=== PATIENT | male | born 1990 | race Caucasian/White ===

== ENCOUNTER 2017-04-12 01:08 | Emergency (ER) | payer MEDICAID ==
[2017-04-12] MEDS ORDERED: IBUPROFEN 800 MG TABLET PO ONE (02:24)
[2017-04-12] MEDS ORDERED: CLINDAMYCIN HCL 150 MG CAPSULE PO ONE (02:24)
--- NOTE | 2017-04-12 02:29 | ER Document Report ---
ED Oral Problem - General Chief Complaint: Toothache Stated Complaint: TOOTH PAIN Time Seen by Provider: 04/12/17 01:58 Mode of Arrival: Ambulatory Information source: Patient Notes: 26-year-old male presents to ED for dental pain times a week. He states there was some swelling to his gums below the right lower molars and he felt a pop tonight then tasted a horrible taste in his mouth which caused him to vomit 2. States he took some ibuprofen about 2300 but he threw that up. TRAVEL OUTSIDE OF THE [place] IN LAST 30 DAYS: No - HPI Patient complains to provider of: Toothache Onset: Last week Onset: Gradual Quality of pain: Sharp, Throbbing Severity: Moderate Pain Level: 4 Associated symptoms: Jaw pain, Toothache Worsened by: Cold Relieved by: Nothing Similar symptoms previously: Yes Recently seen / treated by doctor/dentist: No Past Medical History - General Information source: Patient - Social History Smoking Status: Former Smoker Cigarette use (# per day): No Chew tobacco use (# tins/day): No Smoking Education Provided: No Frequency of alcohol use: Occasional Drug Abuse: None Occupation: [employer] Lives with: Family Family History: Arthritis, CAD, COPD, CVA, DM, Hyperlipidemia, Hypertension, Thyroid Disfunction. denies: Malignancy Patient has suicidal ideation: No Patient has homicidal ideation: No - Past Medical History Cardiac Medical History: Reports: None Pulmonary Medical History: Reports: Hx Asthma, Hx Pneumonia EENT Medical History: Reports: None Neurological Medical History: Reports: Hx Migraine Endocrine Medical History: Reports: None Renal/ Medical History: Reports: None Malignancy Medical History: Reports None GI Medical History: Reports: None Musculoskeltal Medical History: Reports Hx Arthritis, Reports Hx Musculoskeletal Deformity, Reports Hx Musculoskeletal Trauma Skin Medical History: Reports None Psychiatric Medical History: Reports: None Traumatic Medical History: Reports: Hx Fractures Infectious Medical History: Reports: None Past Surgical History: Reports: Hx Myringotomy, Hx Orthopedic Surgery - bialteral hand surgery bone graft taken from hip Review of Systems - Review of Systems Constitutional: No symptoms reported EENT: Mouth pain, Dental problem Cardiovascular: No symptoms reported Respiratory: No symptoms reported Gastrointestinal: No symptoms reported Genitourinary: No symptoms reported Male Genitourinary: No symptoms reported Musculoskeletal: No symptoms reported Skin: No symptoms reported Hematologic/Lymphatic: No symptoms reported Neurological/Psychological: No symptoms reported Physical Exam - Vital signs Vitals: Temp Pulse Resp BP Pulse Ox 97.6 F 77 18 136/84 H 100 04/12/17 01:04/12/17 01:04/12/17 01:04/12/17 01:04/12/17 01:14 Interpretation: Normal - General General appearance: Appears well, Alert - HEENT Head: Normocephalic, Atraumatic Eyes: Normal Pupils: PERRL Ears: Normal External canal: Normal Tympanic membrane: Normal Sinus: Normal Nasal: Normal Mouth/Lips: Caries Mucous membranes: Other - gums to left lower jaw red and inflamed with area that is mildly draining Pharynx: Normal Neck: Normal - Respiratory Respiratory status: No respiratory distress Chest status: Nontender Breath sounds: Normal Chest palpation: Normal - Cardiovascular Rhythm: Regular Heart sounds: Normal auscultation Murmur: No - Abdominal Inspection: Normal Distension: No distension Bowel sounds: Normal Tenderness: Nontender Organomegaly: No organomegaly - Back Back: Normal, Nontender - Extremities General upper extremity: Normal inspection, Nontender, Normal color, Normal ROM , Normal temperature General lower extremity: Normal inspection, Nontender, Normal color, Normal ROM , Normal temperature, Normal weight bearing. No: Mary's sign - Neurological Neuro grossly intact: Yes Cognition: Normal Orientation: AAOx4 Adrian Coma Scale Eye Opening: Spontaneous [place] Coma Scale Verbal: Oriented [place] Coma Scale Motor: Obeys Commands Adrian Coma Scale Total: 15 Speech: Normal Motor strength normal: LUE, RUE, LLE, RLE Sensory: Normal - Psychological Associated symptoms: Normal affect, Normal mood - Skin Skin Temperature: Warm Skin Moisture: Dry Skin Color: Normal Course - Vital Signs Vital signs: Temp Pulse Resp BP Pulse Ox 97.6 F 77 18 136/84 H 100 04/12/17 01:04/12/17 01:04/12/17 01:04/12/17 01:04/12/17 01:14 Discharge - Discharge Clinical Impression: Pain due to dental caries, Gingivitis Condition: Stable Disposition: HOME, SELF-CARE Additional Instructions: TOOTHACHE: Your pain is due to dental decay. The tooth must be repaired in order for you to feel better. You will, therefore, be referred to a dentist. We do not have dentists on the staff at [facility]. Severe swelling or drainage around a tooth usually means a dental abscess. This also requires evaluation and treatment by the dentist, but antibiotics may be prescribed while awaiting dental treatment. You should be rechecked immediately if you develop major swelling of the face, increasing pain, a lump in the jaw or gums, headache, difficulty swallowing, or fever. CLINDAMYCIN: You have been given a prescription for the antibiotic clindamycin. It is often prescribed for infections in the mouth, such as dental infections or abscesses, and for skin infections due to MRSA. It's important that you take all the medication, unless instructed otherwise by your physician. Failure to complete the entire course can result in relapse of your condition. Common side effects of antibiotics include nausea, intestinal cramping, or diarrhea. Women may develop vaginal yeast infections, and babies can get yeast (thrush) in the mouth following the use of antibiotics. Contact your physician if you develop significant side effects from this medication. Allergy to this antibiotic can result in hives, wheezing, faintness, or itching. If symptoms of allergy occur, stop the medication and call the doctor. Anti-Inflammatory Medication You have received a prescription for an antiinflammatory agent. This is an excellent, safe drug for pain control. In addition, it has potent antiinflammatory effects which are beneficial, especially in the treatment of injuries, arthritis, or tendonitis. It's best to take this medicine with food. Persons with ulcer disease or allergy to aspirin should notify their physician of this before taking this drug. Take the medication exactly as prescribed. Don't take additional doses unless instructed to do so by your doctor. If you develop wheezing, shortness of breath, hives, faintness, stomach pain, vomiting, or dark black stools, return for re-evaluation at once. FOLLOW-UP CARE: You have been referred for follow-up care to the dentists listed below. Call the dentists office for an appointment as you were instructed or within the next two days. If you experience worsening or a significant change in your symptoms, notify the physician immediately or return to the Emergency Department at any time for re-evaluation. [facility] [address] [place] [address] [facility] [place] [facility] [address] [facility] [place] [email or web address] [address] [place] [address] Saturday- 8:00am to 5:00 pm Will see patients from other [facility]. Charges based on income and family size and accepts Medicare, Medicaid, and Insurances Will pull molars [facility] [place] [address] Hours of Operation 8:00 am - 4:30 pm weekdays The following dental offices accept Medicaid: [facility] Dr. Sethi Dr. Cowart Dr. Brennan Dr. Aiken Mukesh Padilla L[place], and [facility] Dr. Tucker ([place]) Dr. Nation ([place]) [facility] Drs. Win and Abdulaziz ([place]) Dr. Blake ([place]) [facility] Dr. Whitney ([place]) Drs. Murillo and ([place]) Medicaid Care Line Prescriptions: Ibuprofen 800 mg PO Q8HP PRN #20 tablet PRN Reason: Clindamycin HCl 300 mg PO Q6 10 Days Forms: Elevated Blood Pressure, Return to Work Referrals: [facility] [Provider Group] - Follow up as needed
[2017-04-12 02:42] VITALS: BP 127/77
== END 2017-04-12 02:42 | disposition home or self-care (01) ==
LOC: ER 01:08
DX: K02.9 Dental caries, unspecified (principal); K05.10 Chronic gingivitis, plaque induced; R68.84 Jaw pain; Z87.891 Personal history of nicotine dependence
CPT/HCPCS: 99282; J3490 ×2

== ENCOUNTER 2017-07-17 20:41 | Emergency (ER) | payer MEDICAID ==
[2017-07-17] MEDS ORDERED: ACETAMINOPHEN 325 MG TABLET PO ONE (23:03)
[2017-07-17] MEDS ORDERED: NORMAL SALINE 1000 ML 1,000 ML IV ONE (23:03)
--- NOTE | 2017-07-18 00:03 | RADIOLOGY REPORT (SQ) ---
EXAM DESCRIPTION: CHEST PA/LAT COMPLETED DATE/TIME: 07/17/2017 11:20 pm REASON FOR STUDY: fever/ flu sx COMPARISON: None. EXAM PARAMETERS: NUMBER OF VIEWS: two views TECHNIQUE: Digital Frontal and Lateral radiographic views of the chest acquired. RADIATION DOSE: NA LIMITATIONS: none FINDINGS: LUNGS AND PLEURA: No opacities, masses or pneumothorax. No pleural effusion. Moderate antoinette g volume. MEDIASTINUM AND HILAR STRUCTURES: No masses or contour abnormalities. HEART AND VASCULAR STRUCTURES: Heart normal size. No evidence for failure. BONES: No acute findings. HARDWARE: None in the chest. OTHER: No other significant finding. IMPRESSION: NO SIGNIFICANT RADIOGRAPHIC FINDING IN THE CHEST. TECHNICAL DOCUMENTATION: JOB ID: [id number] [employer]- All Rights Reserved
[2017-07-18 00:47] LABS: ABSOLUTE MONOCYTES (AUTO) 1.3 10^3/uL (0.1-1.4); ABSOLUTE NEUT (AUTO) 10.6 10^3/uL (1.7-8.2); BASOPHILS % (AUTO) 0.1 % (0-2); HEMATOCRIT 42.9 % (37.9-51.0); HEMOGLOBIN 15.3 g/dL (13.5-17.0); LYMPHOCYTES % (AUTO) 7.7 % (13-45); MEAN CORPUSCULAR HGB CONC 35.6 g/dL (32.0-36.0); MEAN CORPUSCULAR VOLUME 87 fl (80-97); RED BLOOD COUNT 4.91 10^6/uL (4.35-5.55); RED CELL DISTRIBUTION WIDTH 12.8 % (11.5-14.0); SEGMENTED NEUTROPHILS % (AUTO) 82.2 % (42-78); WHITE BLOOD COUNT 12.9 10^3/uL (4.0-10.5)
[2017-07-18 00:59] LABS: ALANINE AMINOTRANSFERASE 44 U/L (21-72); ALKALINE PHOSPHATASE 82 U/L (38-126); ASPARTATE AMINO TRANSFERASE 25 U/L (17-59); BILIRUBIN,DIRECT 0.7 mg/dL (0.0-0.4); BILIRUBIN,TOTAL 2.4 mg/dL (0.2-1.3); BLOOD UREA NITROGEN 12 mg/dL (7-20); CALCIUM 9.7 mg/dL (8.4-10.2); GLUCOSE 113 mg/dL (75-110); TOTAL PROTEIN 8.3 g/dL (6.3-8.2)
[2017-07-18 00:59] LABS: APPEARANCE,URINE SLIGHTLY-CLOUDY; BILIRUBIN,URINE SMALL (NEGATIVE); GLUCOSE, URINE NEGATIVE (NEGATIVE); KETONES,URINE 80 mg/dL (NEGATIVE); LEUKOCYTE ESTERASE,URINE NEGATIVE (NEGATIVE); NITRITE,URINE NEGATIVE (NEGATIVE); PROTEIN,URINE 100 mg/dL (NEGATIVE); URINE SPECIFIC GRAVITY 1.038
[2017-07-18 01:04] LABS: PROTHROMBIN TIME 13.7 SEC (11.4-15.4)
[2017-07-18 01:07] LABS: CARBON DIOXIDE 22 mmol/L (22-30); CHLORIDE 101 mmol/L (98-107); POTASSIUM 4.4 mmol/L (3.6-5.0); SODIUM 142.5 mmol/L (137-145)
[2017-07-18 01:08] LABS: ANION GAP 20 (5-19)
[2017-07-18] MEDS ORDERED: ONDANSETRON HCL INJ/PF 4 MG/2 ML SDV ONE (01:22)
[2017-07-18] MEDS ORDERED: ONDANSETRON HCL INJ/PF 4 MG/2 ML SDV IV ONE (01:23)
--- NOTE | 2017-07-18 02:56 | ER Document Report ---
ED General - General Chief Complaint: Flu Symptoms Stated Complaint: FEVER/VOMITING Time Seen by Provider: 07/18/17 01:21 Mode of Arrival: Ambulatory Information source: Patient Notes: 27-year-old male presents with 2 day duration of productive cough fevers body aches. Patient admits to coughing so hard that he vomits. Patient denies any abdominal pain Patient has a history of asthma denies any smoking history denies any DVT or PE risk factors TRAVEL OUTSIDE OF THE [place] IN LAST 30 DAYS: No - HPI Onset: Other - 2 day duration Onset/Duration: Persistent Quality of pain: Achy Severity: Mild Pain Level: 1 Associated symptoms: Fever Exacerbated by: Coughing Relieved by: Denies Similar symptoms previously: No Recently seen / treated by doctor: No Past Medical History - Social History Smoking Status: Never Smoker Cigarette use (# per day): No Chew tobacco use (# tins/day): No Smoking Education Provided: No Drug Abuse: None Family History: Arthritis, CAD, COPD, CVA, DM, Hyperlipidemia, Hypertension, Thyroid Disfunction. denies: Malignancy Patient has suicidal ideation: No Patient has homicidal ideation: No Pulmonary Medical History: Reports: Hx Asthma, Hx Pneumonia Neurological Medical History: Reports: Hx Migraine Renal/ Medical History: Denies: Hx Peritoneal Dialysis Musculoskeltal Medical History: Reports Hx Arthritis, Reports Hx Musculoskeletal Deformity, Reports Hx Musculoskeletal Trauma Traumatic Medical History: Reports: Hx Fractures Past Surgical History: Reports: Hx Myringotomy, Hx Orthopedic Surgery - bialteral hand surgery bone graft taken from hip Review of Systems - Review of Systems Notes: REVIEW OF SYSTEMS: CONSTITUTIONAL : Denies fever, chills, or sweats. Denies recent illness. EENT: Denies eye, ear, throat, or mouth pain or symptoms. Denies nasal or sinus congestion or discharge. Denies throat, tongue, or mouth swelling or difficulty swallowing. CARDIOVASCULAR: Denies chest pain. Denies palpitations or racing or irregular heart beat. Denies ankle edema. RESPIRATORY: Admits to fever cough shortness of breath posttussive emesis GASTROINTESTINAL: Denies abdominal pain or distention. Denies blood in vomitus, stools, or per rectum. Denies black, tarry stools. Denies constipation. GENITOURINARY: Denies difficulty urinating, painful urination, burning, frequency, blood in urine, or discharge. MUSCULOSKELETAL: Denies back or neck pain or stiffness. Denies joint pain or swelling. SKIN: Denies rash, lesions or sores. HEMATOLOGIC : Denies easy bruising or bleeding. LYMPHATIC: Denies swollen, enlarged glands. NEUROLOGICAL: Denies confusion or altered mental status. Denies passing out or loss of consciousness. Denies dizziness or lightheadedness. Denies headache. Denies weakness or paralysis or loss of use of either side. Denies problems with gait or speech. Denies sensory loss, numbness, or tingling. Denies seizures. PSYCHIATRIC: Denies anxiety or stress. Denies depression, suicidal ideation, or homicidal ideation. ALL OTHER SYSTEMS REVIEWED AND NEGATIVE. Dictation was performed using [employer] voice recognition software PHYSICAL EXAMINATION: GENERAL: Well-appearing, well-nourished and in no acute distress. Febrile HEAD: Atraumatic, normocephalic. EYES: Pupils equal round and reactive to light, extraocular movements intact, sclera anicteric, conjunctiva are normal. ENT: Nares patent, oropharynx clear without exudates. Moist mucous membranes. NECK: Normal range of motion, supple without lymphadenopathy LUNGS: Breath sounds clear to auscultation bilaterally and equal. No wheezes rales or rhonchi. HEART: Tachycardic ABDOMEN: Soft, nontender, nondistended abdomen. No guarding, no rebound. No masses appreciated. Musculoskeletal: Normal range of motion, no pitting or edema. No cyanosis. NEUROLOGICAL: Cranial nerves grossly intact. Normal speech, normal gait. Normal sensory, motor exams PSYCH: Normal mood, normal affect. SKIN: Warm, Dry, normal turgor, no rashes or lesions noted. Physical Exam - Vital signs Vitals: Temp Pulse Resp BP Pulse Ox 102.1 F H 120 H 20 113/84 98 07/17/17 22:55 07/17/17 22:55 07/17/17 22:55 07/17/17 22:55 07/17/17 22:55 Course - Re-evaluation Re-evalutation: 07/18/17 02:56 Abdominal examination was quite benign, mild white count elevation noted, chest x-ray noted no pneumonia, however patient's presentation would be consistent with pneumonia 07/18/17 03:11 Patient notes he feels much better after IV fluids, I will treat him as if there is bacterial pneumonia given presentation otherwise he looks well is in no distress vital signs have improved patient is happy with this plan wishes to be discharged home work excuse will be provided After performing a Medical Screening Examination, I estimate there is LOW risk for ACUTE CORONARY SYNDROME, RESPIRATORY FAILURE, SEPSIS OR MENINGITIS, thus I consider the discharge disposition reasonable. I have reevaluated this patient multiple times and no significant life threatening changes are noted. The patient and I have discussed the diagnosis and risks, and we agree with discharging home with close follow-up. We also discussed returning to the Emergency Department immediately if new or worsening symptoms occur. We have discussed the symptoms which are most concerning (e.g., changing or worsening pain, trouble swallowing or breathing, neck stiffness, fever) that necessitate immediate return. - Vital Signs Vital signs: Temp Pulse Resp BP Pulse Ox 102.1 F H 120 H 20 113/84 98 07/17/17 22:55 07/17/17 22:55 07/17/17 22:55 07/17/17 22:55 07/17/17 22:55 - Laboratory Result Diagrams: 07/18/17 00:15 07/18/17 00:15 Laboratory results interpreted by me: 07/18/17 07/18/17 07/18/17 00:15 00:15 00:20 WBC 12.9 H Seg Neutrophils % 82.2 H Lymphocytes % 7.7 L Absolute Neutrophils 10.6 H Anion Gap 20 H Glucose 113 H Total Bilirubin 2.4 H Direct Bilirubin 0.7 H Total Protein 8.3 H Urine Protein 100 H Urine Ketones 80 H Urine Blood SMALL H Urine Bilirubin SMALL H Urine Urobilinogen 4.0 H - Diagnostic Test Radiology reviewed: Image reviewed, Reports reviewed - No acute abnormality Discharge - Discharge Clinical Impression: Tachycardia Fever Qualifiers: Fever type: unspecified Qualified Code(s): R50.9 - Fever, unspecified Pneumonia Qualifiers: Pneumonia type: due to unspecified organism Laterality: unspecified laterality Lung location: unspecified part of lung Qualified Code(s): J18.9 - Pneumonia, unspecified organism Condition: Stable Disposition: HOME, SELF-CARE Instructions: Pneumonia ([facility]) Additional Instructions: Follow up with your physician tomorrow for further care or return to the ED IMMEDIATELY if symptoms worsen or new concerns occur. If you cannot afford to follow up with your primary care physician a list of low cost clinics have been provided at the end of your discharge papers as well. Prescriptions: Levofloxacin [Levaquin 750 mg Tablet] 750 mg PO DAILY #5 tablet Forms: Return to Work
[2017-07-18] MEDS ORDERED: LEVOFLOXACIN 750 MG TABLET PO ONE (03:12)
[2017-07-18] MEDS ORDERED: ALBUTEROL SULFATE HFA (90 MCG/PUFF) 8 GM MDI (1 MDI/ER DISP) IH PRN (03:51)
[2017-07-18 05:10] VITALS: BP 109/73
--- NOTE | 2017-07-18 09:08 | EKG REPORT ---
SEVERITY:- NORMAL ECG - SINUS RHYTHM : Confirmed by: Ricardo Bhagat 18-Jul-2017 09:07:12
== END 2017-07-18 03:15 | disposition home or self-care (01) ==
LOC: ER 20:41
DX: J18.9 Pneumonia, unspecified organism (principal); R50.9 Fever, unspecified; R00.0 Tachycardia, unspecified; R11.10 Vomiting, unspecified; M79.1 Myalgia; R05 Cough
CPT/HCPCS: 93005; 99285; 36415; 87086; 85025; 85610; 80053; 81001; 87804; 71020; 93010; J3490 ×3

== ENCOUNTER 2017-09-17 05:43 | Emergency (ER) | payer MEDICAID ==
--- NOTE | 2017-09-17 07:26 | ER Document Report ---
HPI - HPI Patient complains to provider of: Dental pain and decay Onset: Other - Pain is been there for a while, but not in swelling started yesterday. Quality of pain: Achy Pain Level: 3 Context: 27-year-old male with dental decay has been complaining of right lower dental pain for a while but then and not developed adjacent to the decayed molar lower right yesterday. No fever. No known allergies. Associated Symptoms: None Exacerbated by: Denies Relieved by: Denies Recently seen / treated by doctor: No - ROS ROS below otherwise negative: Yes Systems Reviewed and Negative: Yes All other systems reviewed and negative Past Medical History - General Information source: Patient - Social History Smoking Status: Unknown if Ever Smoked Frequency of alcohol use: None Drug Abuse: None Lives with: Family Family History: Arthritis, CAD, COPD, CVA, DM, Hyperlipidemia, Hypertension, Thyroid Disfunction. denies: Malignancy Patient has suicidal ideation: No Patient has homicidal ideation: No Pulmonary Medical History: Reports: Hx Asthma, Hx Pneumonia Neurological Medical History: Reports: Hx Migraine Renal/ Medical History: Denies: Hx Peritoneal Dialysis Musculoskeltal Medical History: Reports Hx Arthritis, Reports Hx Musculoskeletal Deformity, Reports Hx Musculoskeletal Trauma Traumatic Medical History: Reports: Hx Fractures Past Surgical History: Reports: Hx Myringotomy, Hx Orthopedic Surgery - bialteral hand surgery bone graft taken from hip Vertical Provider Document - CONSTITUTIONAL Agree With Documented VS: Yes Exam Limitations: No Limitations General Appearance: No Apparent Distress - INFECTION CONTROL TRAVEL OUTSIDE OF THE [place] IN LAST 30 DAYS: No - HEENT HEENT: Normocephalic Notes: Decayed teeth throughout, lower right second molar decayed to the pulp with adjacent gingival swelling no pus drainage. No adenopathy - NECK Neck: Supple. negative: Lymphadenopathy-Left, Lymphadenopathy-Right - RESPIRATORY O2 Sat by Pulse Oximetry: 98 - NEURO Level of Consciousness: Awake, Alert, Appropriate - DERM Integumentary: Warm, Dry Course - Vital Signs Vital signs: Temp Pulse Resp BP Pulse Ox 98.2 F 110 H 18 137/82 H 98 09/17/17 05:43 09/17/17 05:43 09/17/17 05:43 09/17/17 05:43 09/17/17 05:43 Discharge - Discharge Clinical Impression: Dental infection and abscess Condition: Good Disposition: HOME, SELF-CARE Instructions: Penicillin V K ([facility]), Toothache ([facility]), Dental Infection or Abscess ([facility]), Dentist, Use of [id number] Ibuprofen ([facility]), Acetaminophen Additional Instructions: See the dentist Warm compress Motrin, Tylenol, topical lidocaine to numb the area, penicillin for the infection Return to the emergency room any concerns Prescriptions: Penicillin V Potassium [Penicillin Vk 500 mg Tablet] 500 mg PO QID #40 tablet
[2017-09-17] MEDS ORDERED: LIDOCAINE 2% VISCOUS SOLN 20 ML UDCUP PO ONE (07:36)
[2017-09-17] MEDS ORDERED: ACETAMINOPHEN 325 MG TABLET PO ONE (07:37)
[2017-09-17] MEDS ORDERED: IBUPROFEN 800 MG TABLET PO ONE (07:37)
[2017-09-17 07:54] VITALS: BP 142/89
== END 2017-09-17 07:54 | disposition home or self-care (01) ==
LOC: ER 05:43
DX: K04.7 Periapical abscess without sinus (principal); K02.9 Dental caries, unspecified; K08.89 Other specified disorders of teeth and supporting structures; J45.909 Unspecified asthma, uncomplicated
CPT/HCPCS: 99282; J3490 ×3

== ENCOUNTER 2018-05-08 00:08 | Emergency (ER) | payer MEDICAID ==
--- NOTE | 2018-05-08 00:58 | RADIOLOGY REPORT (SQ) ---
EXAM DESCRIPTION: XR SHOULDER 2 OR MORE VIEWS COMPLETED DATE/TME: 05/08/2018 00:00 CLINICAL HISTORY: 27 years, Male, pain L shoulder after fall COMPARISON: None. NUMBER OF VIEWS: Three TECHNIQUE: Three views of the left shoulder LIMITATIONS: None. FINDINGS: There is no acute fracture or dislocation. The glenohumeral and AC joints are intact IMPRESSION: No acute fracture or dislocation 2010 [email or web address] All Rights Reserved
[2018-05-08] MEDS ORDERED: HYDROCODONE/ACETAMINOPHEN 5-325 MG (6 TAB/ER DISP) PO PRN (01:12)
--- NOTE | 2018-05-08 01:15 | ER Document Report ---
ED General - General Chief Complaint: Shoulder Injury Stated Complaint: SHOULDER INJURY Time Seen by Provider: 05/08/18 00:54 Notes: Patient is a 27-year-old male who fell getting out of a bathtub. He landed onto his left shoulder. He has pain into his left trapezius muscle. No weakness or numbness into the hand. Did not hit his head. No neck pain. No other complaints at this time. TRAVEL OUTSIDE OF THE [place] IN LAST 30 DAYS: No - Related Data Allergies/Adverse Reactions: No Known Allergies Allergy (Unverified 09/17/17 05:50) Past Medical History - Social History Smoking Status: Unknown if Ever Smoked Frequency of alcohol use: None Drug Abuse: None Family History: Arthritis, CAD, COPD, CVA, DM, Hyperlipidemia, Hypertension, Thyroid Disfunction. denies: Malignancy Pulmonary Medical History: Reports: Hx Asthma, Hx Pneumonia Neurological Medical History: Reports: Hx Migraine Renal/ Medical History: Denies: Hx Peritoneal Dialysis Musculoskeletal Medical History: Reports Hx Arthritis, Reports Hx Musculoskeletal Deformity, Reports Hx Musculoskeletal Trauma Traumatic Medical History: Reports: Hx Fractures Past Surgical History: Reports: Hx Myringotomy, Hx Orthopedic Surgery - bialteral hand surgery bone graft taken from hip Review of Systems - Review of Systems Notes: My Normal Review Basic REVIEW OF SYSTEMS: CONSTITUTIONAL : Denies fever, chills, or sweats. Denies recent illness. MUSCULOSKELETAL: Left shoulder pain. SKIN: Denies rash or skin lesions. NEUROLOGICAL: Denies altered mental status or loss of consciousness. Denies headache. Denies weakness or paralysis or loss of use of either side. Denies problems with gait or speech. Denies sensory or motor loss. ALL OTHER SYSTEMS REVIEWED AND NEGATIVE. Physical Exam - Vital signs Vitals: Temp Pulse Resp BP Pulse Ox 98.5 F 82 18 136/82 H 98 05/08/18 00:41 05/08/18 00:41 05/08/18 00:41 05/08/18 00:41 05/08/18 00:41 - Notes Notes: General Appearance: Well nourished, alert, cooperative, no acute distress, moderate obvious discomfort. Vitals: reviewed, See vital signs table. Head: no swelling or tenderness to the head Eyes: PERRL, EOMI, Conjuctiva clear Neck: Supple, no neck tenderness, No thyromegaly Extremities: strength 5/5 in all extremities, good pulses in all extremities, on exam patient does not have much pain to palpation of the shoulder itself. All of his pain is over the left trapezius muscle. No midline tenderness of the cervical spine. He has no tenderness into the elbow wrist or hand. He does have some pain with range of motion of the shoulder. Distal sensation is intact. Good cap refill in all fingers. Skin: warm, dry, appropriate color, no rash Neuro: speech clear, oriented x 3, normal affect, responds appropriately to questions. Course - Re-evaluation Re-evalutation: 05/08/18 05:19 Patient will be discharged home with a sling. I wrote a work note so he can lift heavy weight with his left arm for at least 1 week. I informed him if he still having pain after 1 week then he is to follow-up with orthopedist for further evaluation. Patient agrees with plan will be discharged home. Dictation of this chart was performed using voice recognition software; therefore, there may be some unintended grammatical errors. - Vital Signs Vital signs: Temp Pulse Resp BP Pulse Ox 98.5 F 88 16 127/82 H 98 05/08/18 01:22 05/08/18 01:22 05/08/18 01:22 05/08/18 01:22 05/08/18 01:22 Discharge - Discharge Clinical Impression: Shoulder pain, left Qualifiers: Chronicity: acute Qualified Code(s): M25.512 - Pain in left shoulder Trapezius muscle strain Qualifiers: Encounter type: initial encounter Laterality: left Qualified Code(s): S46.812A - Strain of other muscles, fascia and tendons at shoulder and upper arm level, left arm, initial encounter Condition: Good Disposition: HOME, SELF-CARE Instructions: Oral Narcotic Medication ([facility]) Additional Instructions: Please do not lift heavy weight with your left shoulder for at least one week. Please follow up with the orthopedist for reevlauation if you still have pain after one week. Please be aware that Rico does have Tylenol (acetaminophen) in it. Please make sure you do not take more than 4000 mg of acetaminophen a day. Do not drive or care for children after you have taken this medication they will make you sleepy and sometimes impair judgment. Take anti- inflammatory medication during the day for pain control. He still occasionally pitcher left shoulder through range of motion a few times during the day to help prevent a frozen shoulder. Forms: Special Work Note Referrals: BRAD HUA MD [ACTIVE STAFF] - Follow up in 1 week
[2018-05-08 01:23] VITALS: BP 127/82
== END 2018-05-08 01:27 | disposition home or self-care (01) ==
LOC: ER 00:08
DX: S46.812A Strain of other muscles, fascia and tendons at shoulder and upper arm level, left arm, initial encounter (principal); M25.512 Pain in left shoulder; W18.2XXA Fall in (into) shower or empty bathtub, initial encounter; Y93.E1 Activity, personal bathing and showering; Y92.002 Bathroom of unspecified non-institutional (private) residence as the place of occurrence of the external cause
CPT/HCPCS: 99283

== ENCOUNTER 2018-05-29 12:45 | Emergency (ER) | payer MEDICAID ==
[2018-05-29 13:28] VITALS: BP 149/90
--- NOTE | 2018-05-29 14:24 | ER Document Report ---
ED General - General Chief Complaint: High Blood Pressure Stated Complaint: BLOOD PRESSURE ISSUES Time Seen by Provider: 05/29/18 14:16 TRAVEL OUTSIDE OF THE [place] IN LAST 30 DAYS: No - HPI Notes: Patient is a 27-year-old male no significant past medical history aside from asthma who presents to the ED complaining of occasional dry cough, intermittent wheezing, left lower chest pain that feels like a muscle spasm to him 1-2 days. Possible fever yesterday per pt. Patient states that he was at the dentist office when they told him he had high blood pressure and wanted him to come here because of his other symptoms for evaluation. He is otherwise eating and drinking without difficulties. He is urinating normally and having normal bowel movements. Denies any drug allergies. Denies any prolonged immobilization, distance travel, recent surgery/trauma, personal cancer history , hormone use, smoking, or previous DVT/PE. Denies any headache, neck pain, URI , sore throat, palpitations, syncope, shortness of breath, dyspnea, abdominal pain, nausea/vomiting/diarrhea, urinary retention, dysuria, hematuria, back pain , or rash. - Related Data Allergies/Adverse Reactions: No Known Allergies Allergy (Verified 05/29/18 12:45) Past Medical History - Social History Smoking Status: Never Smoker Chew tobacco use (# tins/day): No Frequency of alcohol use: None Drug Abuse: None Family History: Arthritis, CAD, COPD, CVA, DM, Hyperlipidemia, Hypertension, Thyroid Disfunction. denies: Malignancy Patient has suicidal ideation: No Patient has homicidal ideation: No Pulmonary Medical History: Reports: Hx Asthma, Hx Pneumonia Neurological Medical History: Reports: Hx Migraine Renal/ Medical History: Denies: Hx Peritoneal Dialysis Musculoskeletal Medical History: Reports Hx Arthritis, Reports Hx Musculoskeletal Deformity, Reports Hx Musculoskeletal Trauma Traumatic Medical History: Reports: Hx Fractures Past Surgical History: Reports: Hx Myringotomy, Hx Orthopedic Surgery - bialteral hand surgery bone graft taken from hip Review of Systems - Review of Systems -: Yes All other systems reviewed and negative Physical Exam - Vital signs Vitals: Temp Pulse Resp BP Pulse Ox 97.5 F 73 18 149/90 H 100 05/29/18 13:27 05/29/18 13:27 05/29/18 13:27 05/29/18 13:27 05/29/18 13:27 - Notes Notes: PHYSICAL EXAMINATION: GENERAL: Well-appearing, well-nourished and in no acute distress. HEAD: Atraumatic, normocephalic. EYES: Pupils equal round and reactive to light, extraocular movements intact, sclera anicteric, conjunctiva are normal. ENT: Nares patent and without discharge. oropharynx clear without exudates. No tonsilar hypertrophy or erythema. Moist mucous membranes. NECK: Normal range of motion, supple without lymphadenopathy Chest: + reproducible tenderness to palpation of the lt pectoral area and reproducible with arm extension/abduction. LUNGS: Breath sounds clear to auscultation bilaterally and equal. No wheezes rales or rhonchi. HEART: Regular rate and rhythm without murmurs, rubs, gallops. ABDOMEN: Soft, nontender, nondistended abdomen. No guarding, no rebound. No masses appreciated. Normal bowel sounds present. No CVA tenderness bilaterally. Musculoskeletal: FROM to passive/active. Strength 5+/5. Mary neg. No asymmetry to LE's. Extremities: No cyanosis, clubbing, or edema b/l. Peripheral pulses 2+. Capillary refill less than 3 seconds. NEUROLOGICAL: Normal speech, normal gait. PSYCH: Normal mood, normal affect. SKIN: Warm, Dry, normal turgor, no rashes or lesions noted. Course - Re-evaluation Re-evalutation: 05/29/18 15:48 Patient is an afebrile, well-hydrated 27-year-old male who presents to the ED with an acute URI and chest wall pain. Vitals are acceptable without any significant tachycardia, tachypnea, or hypoxia. PE is otherwise unremarkable aside from the reproducible lower chest wall tenderness. Patient is nontoxic- appearing and is tolerating p.o. without any difficulties. Pt is currently asymptomatic. CBC, CMP, EKG/cardiac enzymes, chest x-ray are all unremarkable for any acute pathology. Patient has a heart score of 1, Wells score of 0, and is PERC negative. Patient does not have any dyspnea or shortness of breath. Patient's presentation and symptomatology creates low suspicion for ACS, PE, pneumothorax, pericarditis, dissection, respiratory compromise, severe dehydration, sepsis, meningitis, or other systemic emergent condition at this time. Patient is aware that his condition can change from initial presentation and he needs to monitor symptoms closely and seek medical attention for any acute changes. Recommend conservative measures for symptoms. Recheck with your PCM in 2-3 days. Consider consult with Cardiology. Return to the ED with any worsening/concerning symptoms otherwise as reviewed in discharge. Patient is in agreement. - Vital Signs Vital signs: Temp Pulse Resp BP Pulse Ox 97.5 F 73 18 149/90 H 100 05/29/18 13:27 05/29/18 13:27 05/29/18 13:27 05/29/18 13:27 05/29/18 13:27 - Laboratory Result Diagrams: 05/29/18 14:24 05/29/18 14:24 Laboratory results interpreted by me: 05/29/18 14:24 Total Bilirubin 1.5 H Discharge - Discharge Clinical Impression: Acute URI, Chest wall pain Condition: Stable Disposition: HOME, SELF-CARE Instructions: Chest Wall Pain ([facility]), Upper Respiratory Illness ([facility]) Additional Instructions: Maintain adequate fluid and food intake Take home medications as directed Low sodium/fat diet Exercise regularly Weight control Monitor blood pressure daily and keep a log Monitor symptoms for any acute changes Recheck with your PCM in 3-5 days Consider a follow-up with cardiology Return to the ED with any worsening symptoms and/or development of fever, headache, chest pain, palpitations, syncope, shortness of breath, trouble breathing, abdominal pain, n/v/d, blood in stool/urine, loss of control of bowel /bladder, urinary retention, muscle weakness/paralysis, numbness/tingling, or other worsening symptoms that are concerning to you. Forms: Elevated Blood Pressure Referrals: CECI GEORGE MD [ACTIVE STAFF] - Follow up as needed
[2018-05-29] MEDS ORDERED: ONDANSETRON 4 MG TAB.RAPDIS PO ONE (14:25)
[2018-05-29 14:40] LABS: ABSOLUTE MONOCYTES (AUTO) 0.6 10^3/uL (0.1-1.4); ABSOLUTE NEUT (AUTO) 5.3 10^3/uL (1.7-8.2); BASOPHILS % (AUTO) 0.2 % (0-2); EOSINOPHILS % (AUTO) 0.4 % (0-6); HEMATOCRIT 46.9 % (37.9-51.0); HEMOGLOBIN 16.5 g/dL (13.5-17.0); LYMPHOCYTES % (AUTO) 15.2 % (13-45); MEAN CORPUSCULAR HEMOGLOBIN 30.7 pg (27.0-33.4); MEAN CORPUSCULAR HGB CONC 35.1 g/dL (32.0-36.0); MEAN CORPUSCULAR VOLUME 88 fl (80-97); MONOCYTES % (AUTO) 8.3 % (3-13); PLATELET COUNT 207 10^3/uL (150-450); RED BLOOD COUNT 5.36 10^6/uL (4.35-5.55); SEGMENTED NEUTROPHILS % (AUTO) 75.9 % (42-78); TOTAL CELLS COUNTED % (AUTO) 100 %; WHITE BLOOD COUNT 6.9 10^3/uL (4.0-10.5)
[2018-05-29 15:00] LABS: ALANINE AMINOTRANSFERASE 62 U/L (21-72); ALBUMIN 4.8 g/dL (3.5-5.0); ALKALINE PHOSPHATASE 78 U/L (38-126); ANION GAP 12 (5-19); ASPARTATE AMINO TRANSFERASE 38 U/L (17-59); BILIRUBIN,DIRECT 0.4 mg/dL (0.0-0.4); BILIRUBIN,TOTAL 1.5 mg/dL (0.2-1.3); BLOOD UREA NITROGEN 9 mg/dL (7-20); CALCIUM 9.5 mg/dL (8.4-10.2); CARBON DIOXIDE 27 mmol/L (22-30); CHLORIDE 102 mmol/L (98-107); GLUCOSE 94 mg/dL (75-110); POTASSIUM 4.7 mmol/L (3.6-5.0); SODIUM 141.1 mmol/L (137-145); TOTAL PROTEIN 7.9 g/dL (6.3-8.2)
--- NOTE | 2018-05-29 15:05 | RADIOLOGY REPORT (SQ) ---
EXAM DESCRIPTION: CHEST 2 VIEWS COMPLETED DATE/TIME: 05/29/2018 2:39 pm REASON FOR STUDY: chest pain, cough COMPARISON: 07/17/2017 EXAM PARAMETERS: NUMBER OF VIEWS: two views TECHNIQUE: Digital Frontal and Lateral radiographic views of the chest acquired. RADIATION DOSE: NA LIMITATIONS: none FINDINGS: LUNGS AND PLEURA: No opacities, masses or pneumothorax. No pleural effusion. MEDIASTINUM AND HILAR STRUCTURES: No masses or contour abnormalities. HEART AND VASCULAR STRUCTURES: Heart normal size. No evidence for failure. BONES: No acute findings. HARDWARE: None in the chest. OTHER: No other significant finding. IMPRESSION: NO ACUTE RADIOGRAPHIC FINDING IN THE CHEST. TECHNICAL DOCUMENTATION: JOB ID: [id number] [email or web address]- All Rights Reserved Reading location - IP/workstation name: [email or web address]
--- NOTE | 2018-05-29 18:38 | EKG REPORT ---
SEVERITY:- NORMAL ECG - SINUS RHYTHM : Confirmed by: Hal Mcgarry MD 29-May-2018 18:37:12
== END 2018-05-29 15:54 | disposition home or self-care (01) ==
LOC: ER 12:45
DX: J06.9 Acute upper respiratory infection, unspecified (principal); R07.89 Other chest pain; J45.909 Unspecified asthma, uncomplicated; R05 Cough; R07.9 Chest pain, unspecified; Z82.49 Family history of ischemic heart disease and other diseases of the circulatory system
CPT/HCPCS: 93005; 99284; 36415; 85025; 80053; 84484; 71046; 93010; S0119